=== PATIENT | male | born 1995 | race African-American/Black ===

== ENCOUNTER 2019-02-24 09:14 | Emergency (ER) | payer OTHER ==
[~2019-02-24] VITALS: Ht 170.2 cm; Wt 77.2 kg
[2019-02-24] MEDS ORDERED: NS 1,000 ML IV ONE (09:45)
[2019-02-24 10:11] LABS: BASO # 0.1 10^3/uL (0.0-0.2); BASO % 0.6 % (0.0-1.0); EOS # 0.2 10^3/uL (0.0-0.5); EOS % 1.9 % (0.0-3.0); HEMATOCRIT 43.7 % (42.0-52.0); LYMPH # 1.1 10^3/uL (1.5-5.0); LYMPH % 12.3 % (24.0-44.0); MEAN CORPUSCULAR HEMOGLOBIN 26.4 pg (27.0-33.0); MEAN CORPUSCULAR VOLUME 82.5 fl (80.0-96.0); MONO # 0.6 10^3/uL (0.0-0.8); MONO % 6.7 % (0.0-5.0); NEUTROPHILS # 6.9 10^3/uL (1.5-8.5); NEUTROPHILS % 78.2 % (36.0-66.0); PLATELET COUNT, AUTOMATED 260 10^3/uL (150-450); WHITE BLOOD COUNT 8.8 10^3/uL (4.0-10.0)
[2019-02-24 11:02] LABS: BILIRUBIN,DIRECT 0.1 MG/DL (0.0-0.2); BILIRUBIN,TOTAL 0.3 MG/DL (0.2-1.0); TOTAL PROTEIN 7.4 GM/DL (6.4-8.2)
[2019-02-24] MEDS ORDERED: ISOVUE-370 76% 100ML VIAL (Q9967) As Ordered ONE (11:17)
--- NOTE | 2019-02-24 12:07 | REP ---
CT ABDOMEN AND PELVIS WITH IV CONTRAST: TECHNIQUE: Axial contrast enhanced images from the lung bases to the pubic symphysis using 100 mL Isovue 370 intravenous contrast material with multiplanar reformations. Visualized lung bases demonstrate no infiltrate. The liver, spleen, adrenals, and pancreas are unremarkable. The left kidney demonstrates a punctate calcification in the mid renal collecting system anteriorly. The right kidney demonstrates minimal dilatation of the renal pelvis. There also appears to be minimal dilatation of the proximal right ureter. I suspect a punctate calculus in the distal right ureter. Urinary bladder appears unremarkable. There is no abdominal aneurysm. There is no adenopathy. I see no free air or free fluid. The appendix is normal. There is no bowel wall thickening. IMPRESSION: Suspect punctate calculus in distal right ureter with minimal right hydroureteronephrosis. Normal appendix. Electronically Signed by Arie Grady MD 02/24/2019 04:40 P
[2019-02-24] MEDS ORDERED: KETOROLAC 30 MG/ML VIAL (J1885) IV ONE (12:45)
[2019-02-24] MEDS ORDERED: FLOM0.4C39 PO (13:57)
[2019-02-24] MEDS ORDERED: IBUP-1022 PO (13:57)
[2019-02-24 14:24] VITALS: BP 133/72
== END 2019-02-24 14:26 | disposition home or self-care (01) ==
LOC: EDBD 09:14 → M ED 09:14
DX: N13.2 Hydronephrosis with renal and ureteral calculous obstruction (principal); Z88.0 Allergy status to penicillin; F17.210 Nicotine dependence, cigarettes, uncomplicated
CPT/HCPCS: 74177; 80047; 80076; 81001; 83690; 85025; 93041; 96361; 96374; 99285; J1885; Q9967